=== PATIENT | male | born 1930 | race Hispanic/Latino ===

== ENCOUNTER 2018-04-07 23:28 | Inpatient (IN) | payer MEDICAID, SELFPAY ==
--- NOTE | 2018-04-07 23:59 | RAD ---
SINGLE VIEW OF THE CHEST: Comparison: None. History: Weakness that began one week ago. Chest pain. FINDINGS: Single view of the chest shows a normal sized cardiomediastinal silhouette. There is no evidence of c onsolidation, mass, or pleural effusion. The bones are unremarkable. IMPRESSION: No evidence of acute cardiopulmonary disease. POS: [facility]
[2018-04-08 00:17] LABS: #Eosinphils 0.3 thou/uL (0.0-0.7); #Lymphocytes 1.3 thou/uL (1.20-3.40); #Monocytes 0.9 thou/uL (0.11-0.59); #Neutrophils 8.1 thou/uL (1.40-6.50); %Basophils 0.3 % (0.0-1.0); %Lymphocytes 11.8 % (21.0-51.0); %Monocytes 8.5 % (0.0-10.0); %Neutrophils 76.5 % (42.0-75.0); Hemoglobin 11.2 g/dL (14.0-18.0); Mean Corpuscular Hemoglobin 30.1 pg (27.0-31.0); Mean Corpuscular Volume 88.6 fL (78.0-98.0); Platelet Count 198 thou/uL (130-400); Red Blood Cell (RBC) Count 3.72 mill/uL (4.70-6.10); White Blood Cell (WBC) Count 10.6 thou/uL (4.8-10.8)
[2018-04-08 00:33] LABS: Bilirubin Negative (Negative); Blood, Urine Large (Negative); Clarity TURBID (Clear); Glucose, Urine (Dipstick) Negative (Negative); Leukocyte Large (Negative); Nitrite Negative (Negative); Protein, Urine (Dipstick) 300 mg/dL (Neg-Trace); Specific Gravity, Urine 1.013 (1.002-1.036); pH, Urine 5.5 (5.0-9.0)
[2018-04-08 00:35] LABS: Bacteria/HPF None Seen HPF (None Seen); Squamous Epithelial 21-50 HPF (0-3)
[2018-04-08 00:38] LABS: ALT (SGPT) 7 U/L (8-55); AST (SGOT) 20 U/L (5-34); Albumin 3.3 g/dL (3.4-4.8); Alkaline Phosphatase 126 U/L (40-150); Anion Gap 15 mmol/L (10-20); BUN (Urea Nitrogen) 46 mg/dL (8.4-25.7); Bilirubin, Total 0.4 mg/dL (0.2-1.2); Calc. Creatinine Clearance 0 mL/min (70-130); Calcium 7.5 mg/dL (7.8-10.44); Carbon Dioxide 20 mmol/L (23-31); Chloride 103 mmol/L (98-107); Estimated GFR-MDRD 20; Globulin 2.9 g/dL (2.4-3.5); Glucose 299 mg/dL (83-110); Potassium 4.6 mmol/L (3.5-5.1); Protein, Total 6.2 g/dL (5.8-8.1); Sodium 133 mmol/L (136-145)
[2018-04-08 00:50] LABS: Pathc Cast-AUWi Flag 574.36 (0-2.49); Yeast-AUWi Flag 783.6 (0-25.0)
[2018-04-08 00:54] LABS: Hyaline Casts/LPF NONE SEEN LPF (0-3 Hyaline)
[2018-04-08 00:55] LABS: Yeast-All Forms 2+ HPF (None Seen)
[2018-04-08 00:56] LABS: Other Casts/LPF None Seen LPF (0-3 Hyaline); Renal Epithelial None Seen HPF (0-3)
[2018-04-08] MEDS ORDERED: cefTRIAXone\\ROCEPHIN 2 GM VIAL ONE (01:02)
[2018-04-08] MEDS ORDERED: Piperacillin/Tazobactam 4.5 GM VIAL ONE (01:52)
[2018-04-08] MEDS ORDERED: Senokot S 8.6-50 MG TAB PO PRN (02:38)
[2018-04-08] MEDS ORDERED: Dextrose 5% in Water 1,000 ML IV PRN (02:41)
[2018-04-08] MEDS ORDERED: Dextrose 50% Abboject 50 ML SYRINGE SLOW IVP PRN (02:41)
[2018-04-08 03:05] LABS: Creatinine, Urine 152.31 mg/dL (63-166)
[2018-04-08] MEDS ORDERED: Ondansetron PF 4 MG/2 ML Vial IVP PRN (03:53)
[2018-04-08] MEDS ORDERED: Ondansetron ODT 4 MG TAB SL PRN (03:53)
[2018-04-08 04:03] VITALS: BMI 26.7
--- NOTE | 2018-04-08 04:21 | HP ---
CHIEF COMPLAINT: Generalized weakness. HISTORY OF PRESENT ILLNESS: Patient is an 87-year-old male with a past medical history of diabetes and hypertension, who is a [place] resident who is visiting his family who comes in with complaints of generalized weakness. Patient's daughter who is at the bedside stated that about a week ago, patient was complaining of his right leg pain, so he went to a primary care doctor here, who prescribed some muscle relaxant and also told him that he had a urinary tract infection. At that time, patient was treated with ciprofloxacin for about 10 days. Patient also was given some ibuprofen p.r.n. as needed for the pain medications, which the family has religiously been giving him. Patient stated that they followed up with the primary care doctor back on Saturday since he was having some nausea, vomiting, and also the leg pain. At this time, they were asked to stop the ibuprofen and patient was started on gabapentin for the leg pain. According to patient's family, he has not been eating or drinking very well for the past few days. No fevers, however, had some shakes today. Also, today when he woke up this morning, he had some generalized weakness. Normally, he is able to walk around, but just felt very weak overall. Patient also has had redness around both of his eyes and was about a week ago, was prescribed some eye antibiotics for possible conjunctivitis. PAST MEDICAL HISTORY: 1. Diabetes. 2. Hypertension. 3. He has some prostate problems. SURGICAL HISTORY: Surgery, he had a TURP. No other surgeries. SOCIAL HISTORY: He is a former smoker. Occasional alcohol use. No drug use. He is a full code. Lives with the family. REVIEW OF SYSTEMS: All negative, except for the ones mentioned above in HPI. ALLERGIES: NO KNOWN ALLERGIES. MEDICATIONS: He takes: 1. Metformin, unknown dose. 2. He takes enalapril. 3. He takes insulin. 4. He has been taking gabapentin. 5. He has been taking ibuprofen. 6. He has been taking ciprofloxacin. FAMILY HISTORY: No history of heart disease, but does have history of diabetes. PHYSICAL EXAMINATION: VITAL SIGNS: His vital signs are as of the following; temperature of 97.8, 107/59, 22, 93% on room air, and 83. GENERAL: He is awake, alert, and oriented x3. Does not appear in any distress. CV: S1, S2 present. No murmurs, rubs, or gallops. LUNGS: Clear to auscultation. No rhonchi or wheezes noted. HEENT: Both of his conjunctiva appear to be injected. He does have some purulent drainage from his right conjunctiva. ABDOMEN: Soft, nontender. Bowel sounds are present x2. EXTREMITIES: No edema. Pedal pulses are present x2. He is able to move both his lower extremities. NEUROLOGIC: No focal deficits. He is able to move all 4 extremities and sensation is present bilateral upper and bilateral lower extremity. SKIN: No cuts, lesions, or bruises noted. LABORATORY RESULTS: As of the following; WBCs of 10.6, hemoglobin of 11.2, hematocrit of 32.9, and his platelets of 198. Sodium of 133, potassium of 4.6, anion gap is 15, bicarb is 20, BUN of 46, and creatinine of 3.01. His lactic acid is 1.8, calcium 7.5. LFTs are normal. Troponin x1 is negative. He also had a chest x-ray and a CT brain. CT brain did not show any acute abnormalities. Chest x-ray was okay. ASSESSMENT AND PLAN: Patient is a very pleasant 87-year-old male who presents to the hospital with complaints of generalized weakness. 1. Sepsis. I know patient does not have an elevated white count, however, patient clinically appears to be in sepsis, most likely from the urinary tract infection. We will start the patient on some ceftriaxone for now. Urine culture has been sent. His urine does also appear pretty cloudy and he has large leukocyte esterase and does have some large wbc's also. Patient currently has a low mean arterial pressure that is less than 65. He has not been resuscitated as of yet. He is currently being resuscitated in the ER. I would like his mean arterial pressure to be 65 or above. If not, he will need some Levophed drip. 2. Bilateral conjunctivitis, most likely appears to be bacterial. We will start him on some ciprofloxacin eyedrops and see if that helps the patient. 3. Acute kidney injury. Unknown patient's creatinine baseline since he has never really been here. However, family states that he has no kidney issues. Patient has been taking ibuprofen and has been taking his NAOMY and has been taking his metformin. I will hold all of that for right now. Start him on some gentle hydration. We will also get a Delgado catheter to make sure he is getting adequate urine output. We will do a renal ultrasound if his creatinine does not improve later on in the day today. We will get Nephrology to come see this patient. 4. Deep venous thrombosis prophylaxis. We will put the patient on some subcu heparin. Job ID: [id number]
[2018-04-08 05:19] LABS: #Eosinphils 0.2 thou/uL (0.0-0.7); #Monocytes 0.6 thou/uL (0.11-0.59); #Neutrophils 5.6 thou/uL (1.40-6.50); %Basophils 0.4 % (0.0-1.0); %Eosinophils 3.2 % (0.0-10.0); %Lymphocytes 12.9 % (21.0-51.0); %Monocytes 8.3 % (0.0-10.0); %Neutrophils 75.2 % (42.0-75.0); Hemoglobin 10.9 g/dL (14.0-18.0); Mean Corpuscular HGB CONC 34.4 g/dL (32.0-36.0); Mean Corpuscular Hemoglobin 30.9 pg (27.0-31.0); Mean Corpuscular Volume 89.8 fL (78.0-98.0); Mean Platelet Volume 8.2 fL (7.4-10.4); Platelet Count 160 thou/uL (130-400); Red Blood Cell (RBC) Count 3.54 mill/uL (4.70-6.10); White Blood Cell (WBC) Count 7.5 thou/uL (4.8-10.8)
[2018-04-08] MEDS ORDERED: Sodium Chloride 0.9% 1,000 ML IV SCH (05:30)
[2018-04-08 05:42] LABS: Anion Gap 14 mmol/L (10-20); BUN (Urea Nitrogen) 39 mg/dL (8.4-25.7); Calc. Creatinine Clearance 23 mL/min (70-130); Calcium 7.2 mg/dL (7.8-10.44); Carbon Dioxide 18 mmol/L (23-31); Chloride 107 mmol/L (98-107); Estimated GFR-MDRD 26; Glucose 230 mg/dL (83-110); Potassium 4.5 mmol/L (3.5-5.1); Sodium 134 mmol/L (136-145)
[2018-04-08] MEDS: Sodium Chloride 0.9% 1,000 ML IV SCH ×2 (06:06→20:59)
--- NOTE | 2018-04-08 08:32 | CT ---
PRELIMINARY REPORT/[facility]/EMERGENCY AFTER HOURS PROCEDURE: EXAM: CT Head Without Contrast EXAM DATE/TIME: 04/08/2018 12:36 AM CLINICAL HISTORY: 87 years old, male; Signs and symptoms; Altered mental status/memory loss; Patient HX: Ems reports lida aguilera began having weakness x1 week ago and was diagnosed with a uti and an eye infection. Family rep orts family keeps getting weaker. TECHNIQUE: Axial computed tomography images of the head/brain without contrast. COMPARISON: No relevant prior studies available. FINDINGS: Brain: No intracrainal hemorrhage. No midline shift. The brain parenchyma appears normal for age. Prominent extra-axial fluid collections Ventricles: No ventriculomegaly. Bones/joints: Normal. No acute fracture. Sinuses: Normal as visualized. No acute sinusitis. Mastoid air cells: Normal as visualized. No mastoid effusion. Soft tissues: Normal. IMPRESSION: No acute intracranial abnormality. Thank you for allowing us to participate in the care of your patient. Dictated and Authenticated by: Jude Laurent MD 04/08/2018 1:11 AM Central Time ([place] & [place]) FINAL REPORT CT BRAIN WITHOUT CONTRAST: Date: 04/08/18 FINDINGS/IMPRESSION: I agree with the preliminary report given by Yuly. POS: [facility]
--- NOTE | 2018-04-08 08:52 | ULT ---
BILATERAL RENAL ULTRASOUND: Date: 04/08/18 HISTORY: Renal insufficiency. FINDINGS: The right kidney measures 10.6 cm in length and the left kidney measures 10.7 cm in length. No focal mass or hydronephrosis is seen. There is a Delgado catheter in the urinary bladder. IMPRESSION: No evidence of high grade obstruction. POS: [facility]
[2018-04-08] MEDS ORDERED: Prevnar 13-Val Conj/PF 0.5 ML SYRINGE IM ONE (09:00)
[2018-04-08] MEDS: Ciprofloxacin 0.3 % Oint 3.5 GM TUBE EA EYE SCH ×2 (09:41→20:59)
[2018-04-08] MEDS: Heparin 5,000 UNITS/ML VIAL SC SCH ×3 (09:43→20:59)
--- NOTE | 2018-04-08 10:43 | PDOC.EVN ---
Event Note - Event Note Event Note: Patient afebrile, continue Rocephin and follow up on urine cx. Failed OP Cipro for UTI.
[2018-04-08] MEDS: Acetaminophen 325 MG TAB PO PRN (20:59)
[2018-04-09] MEDS: cefTRIAXone\\ROCEPHIN 1 GM in Sodium Chloride 0.9% 100 ML IVPB SCH (01:56)
[2018-04-09] MEDS: Heparin 5,000 UNITS/ML VIAL SC SCH ×3 (08:59→21:48)
[2018-04-09] MEDS: Ciprofloxacin 0.3 % Oint 3.5 GM TUBE EA EYE SCH ×2 (08:59→21:47)
--- NOTE | 2018-04-09 09:06 | PDOC.PN ---
- Subjective Encounter Start Date: 04/09/18 Encounter Start Time: 09:30 Subjective: Patient denies complaints. States leg pain mostly resolved. No more fever. -: No back or abdominal pain. Eager to go because has a flight to -: [place] on Apr 13 in [place]. - Objective Resuscitation Status - Order Detail: 04/08/18 02:38 Resuscitation Status Routine Resuscitation Status: FULL: Full Resuscitation Vital Signs & Weight: Vital Signs (12 hours) Temp Pulse Resp BP Pulse Ox 04/09/18 07:35 98.1 F 75 16 119/65 96 04/09/18 03:43 98.5 F 73 15 106/58 L 93 L 04/09/18 00:22 98.1 F Weight Weight 165 lb 11.2 oz I&O: 04/08/18 04/09/18 04/10/18 06:59 06:59 06:59 Intake Total 1000 Output Total 550 540 Balance -550 460 Result Diagrams: 04/08/18 04:52 04/08/18 04:52 Additional Labs: Accuchecks 04/09/18 04/08/18 04/08/18 05:42 20:47 17:17 POC Glucose 167 H 191 H 188 H 04/08/18 10:38 POC Glucose 202 H Phys Exam - Physical Examination Constitutional: NAD HEENT: moist MMs moderate conjuctival injection bilaterally Respiratory: no wheezing, no rales, no rhonchi Cardiovascular: RRR, no significant murmur Gastrointestinal: soft, non-tender, positive bowel sounds Musculoskeletal: no edema Neurological: non-focal, moves all 4 limbs Psychiatric: normal affect, A&O x 3 Dx/Plan (1) Urinary tract infection Status: Acute Qualifiers: Urinary tract infection type: acute pyelonephritis Qualified Code(s): N10 - Acute pyelonephritis (2) Sepsis Code(s): A41.9 - SEPSIS, UNSPECIFIED ORGANISM Status: Acute Comment: Fever and low BP on admission, improved, Lactic acid normal (3) ARF (acute renal failure) Status: Acute Qualifiers: Acute renal failure type: unspecified Qualified Code(s): N17.9 - Acute kidney failure, unspecified Comment: recheck, receiving fluids (4) Conjunctivitis Code(s): H10.9 - UNSPECIFIED CONJUNCTIVITIS Status: Acute Comment: Cipro optho drops (5) Diabetes mellitus type 2 in nonobese Code(s): E11.9 - TYPE 2 DIABETES MELLITUS WITHOUT COMPLICATIONS Status: Chronic Comment: on ISS, Lantus at home, holding metformin due to renal insufficiency (6) Hypertension Code(s): I10 - ESSENTIAL (PRIMARY) HYPERTENSION Status: Chronic Qualifiers: Hypertension type: essential hypertension Qualified Code(s): I10 - Essential (primary) hypertension Comment: Holding meds due to low BP - Plan cont current plan of care, continue antibiotics, DVT proph w/heparin Likely 1-2 more days of IV abx then once culture back can d/c on oral -: meds. * . - Discharge Day Encounter end time: 09:45
[2018-04-09] MEDS: Guaifenesin DM 100-10/5 ML UDCUP PO PRN (16:27)
[2018-04-09] MEDS ORDERED: Ondansetron ODT 4 MG TAB PO PRN (19:07)
[2018-04-09] MEDS ORDERED: Ondansetron PF 4 MG/2 ML Vial SLOW IVP PRN (19:07)
[2018-04-09] MEDS: Sodium Chloride 0.9% 1,000 ML IV SCH ×2 (21:49)
[2018-04-09] MEDS: HumaLOG 300 UNITS/3 ML VIAL SC PRN (22:43)
[2018-04-10] MEDS: Guaifenesin DM 100-10/5 ML UDCUP PO PRN ×2 (00:33→21:10)
[2018-04-10] MEDS: Acetaminophen 325 MG TAB PO PRN (00:33)
[2018-04-10] MEDS: cefTRIAXone\\ROCEPHIN 1 GM in Sodium Chloride 0.9% 100 ML IVPB SCH (00:34)
[2018-04-10 05:18] LABS: #Eosinphils 0.2 thou/uL (0.0-0.7); #Lymphocytes 0.9 thou/uL (1.20-3.40); #Monocytes 0.5 thou/uL (0.11-0.59); #Neutrophils 3.1 thou/uL (1.40-6.50); %Basophils 0.2 % (0.0-1.0); %Eosinophils 4.4 % (0.0-10.0); %Lymphocytes 19.1 % (21.0-51.0); %Neutrophils 65.3 % (42.0-75.0); Hemoglobin 10.4 g/dL (14.0-18.0); Mean Corpuscular HGB CONC 34.3 g/dL (32.0-36.0); Mean Corpuscular Hemoglobin 30.8 pg (27.0-31.0); Mean Corpuscular Volume 89.9 fL (78.0-98.0); Mean Platelet Volume 8.1 fL (7.4-10.4); Platelet Count 156 thou/uL (130-400); Red Blood Cell (RBC) Count 3.39 mill/uL (4.70-6.10); White Blood Cell (WBC) Count 4.8 thou/uL (4.8-10.8)
[2018-04-10 05:45] LABS: Anion Gap 10 mmol/L (10-20); BUN (Urea Nitrogen) 16 mg/dL (8.4-25.7); Calc. Creatinine Clearance 49 mL/min (70-130); Carbon Dioxide 22 mmol/L (23-31); Chloride 112 mmol/L (98-107); Estimated GFR-MDRD 63; Glucose 147 mg/dL (83-110); Sodium 140 mmol/L (136-145)
--- NOTE | 2018-04-10 07:38 | PDOC.PN ---
- Subjective Encounter Start Date: 04/10/18 Encounter Start Time: 14:00 Subjective: Patient denies pain. Some nausea earlier better with meds. Only low -: grade temp to 100.1 overnight. - Objective Resuscitation Status - Order Detail: 04/08/18 02:38 Resuscitation Status Routine Resuscitation Status: FULL: Full Resuscitation MAR Reviewed: Yes Vital Signs & Weight: Vital Signs (12 hours) Temp Pulse Resp BP Pulse Ox 04/10/18 04:00 97.8 F 74 20 124/68 94 L 04/10/18 00:00 100.1 F H 93 L 04/09/18 19:51 98.4 F 80 18 129/64 92 L Weight Admit Weight 165 lb 11.2 oz Weight 165 lb 1.6 oz I&O: 04/09/18 04/10/18 04/11/18 06:59 06:59 06:59 Intake Total 1000 911 Output Total 540 1025 Balance 460 -114 Result Diagrams: 04/10/18 04:42 04/10/18 04:42 Additional Labs: Accuchecks 04/10/18 04/09/18 04/09/18 05:50 20:22 16:50 POC Glucose 137 H 221 H 190 H 04/09/18 10:55 POC Glucose 229 H Phys Exam - Physical Examination Constitutional: NAD HEENT: moist MMs Respiratory: no wheezing, no rales, no rhonchi Cardiovascular: RRR, no significant murmur Gastrointestinal: soft, non-tender, positive bowel sounds Musculoskeletal: no edema Neurological: non-focal, moves all 4 limbs Psychiatric: normal affect, A&O x 3 Dx/Plan (1) Urinary tract infection Status: Acute Qualifiers: Urinary tract infection type: acute pyelonephritis Qualified Code(s): N10 - Acute pyelonephritis Comment: Decreasing fever curve. UCx only with yeast thus far. Will give a dose of Diflucan. (2) Sepsis Code(s): A41.9 - SEPSIS, UNSPECIFIED ORGANISM Status: Acute Comment: Fever and low BP on admission, improved, Lactic acid normal (3) ARF (acute renal failure) Status: Resolved Qualifiers: Acute renal failure type: unspecified Qualified Code(s): N17.9 - Acute kidney failure, unspecified Comment: resolved with fluids (4) Conjunctivitis Code(s): H10.9 - UNSPECIFIED CONJUNCTIVITIS Status: Acute Comment: Cipro optho drops (5) Diabetes mellitus type 2 in nonobese Code(s): E11.9 - TYPE 2 DIABETES MELLITUS WITHOUT COMPLICATIONS Status: Chronic Comment: on ISS, Lantus at home, holding metformin due to renal insufficiency (6) Hypertension Code(s): I10 - ESSENTIAL (PRIMARY) HYPERTENSION Status: Chronic Qualifiers: Hypertension type: essential hypertension Qualified Code(s): I10 - Essential (primary) hypertension Comment: Holding meds due to low BP - Plan cont current plan of care, continue antibiotics Possibly switch to oral antibiotics and home tomorrow if no more fever. * . - Discharge Day Encounter end time: 14:30
[2018-04-10] MEDS: Heparin 5,000 UNITS/ML VIAL SC SCH ×3 (09:02→21:12)
[2018-04-10] MEDS: Ciprofloxacin 0.3 % Oint 3.5 GM TUBE EA EYE SCH ×2 (09:02→21:16)
[2018-04-10] MEDS: Sodium Chloride 0.9% 1,000 ML IV SCH ×2 (09:03→21:10)
[2018-04-11] MEDS: Guaifenesin DM 100-10/5 ML UDCUP PO PRN ×2 (00:56→09:04)
[2018-04-11] MEDS: cefTRIAXone\\ROCEPHIN 1 GM in Sodium Chloride 0.9% 100 ML IVPB SCH (00:56)
--- NOTE | 2018-04-11 07:51 | PDOC.PN ---
- Subjective Encounter Start Date: 04/11/18 Encounter Start Time: 10:00 Subjective: Patient reports some congestion and cough overnight. -: No more fever. Eager to go home. - Objective Resuscitation Status - Order Detail: 04/08/18 02:38 Resuscitation Status Routine Resuscitation Status: FULL: Full Resuscitation MAR Reviewed: Yes Vital Signs & Weight: Vital Signs (12 hours) Temp Pulse Resp BP Pulse Ox 04/11/18 04:58 98.9 F 72 14 131/66 96 04/11/18 00:09 99.0 F 67 14 114/63 97 04/10/18 19:55 98.1 F 79 18 121/62 92 L Weight Admit Weight 165 lb 11.2 oz Weight 164 lb 11.2 oz I&O: 04/10/18 04/11/18 04/12/18 06:59 06:59 06:59 Intake Total 911 1071 Output Total 1025 1750 Balance -114 -862 Result Diagrams: 04/10/18 04:42 04/10/18 04:42 Additional Labs: Accuchecks 04/11/18 04/10/18 04/10/18 06:20 21:02 17:08 POC Glucose 154 H 194 H 194 H 04/10/18 10:54 POC Glucose 174 H Phys Exam - Physical Examination Constitutional: NAD HEENT: moist MMs decreased conjunctival inflammation Respiratory: no wheezing, no rales, no rhonchi Cardiovascular: RRR, no significant murmur Gastrointestinal: soft, non-tender, positive bowel sounds Neurological: non-focal, moves all 4 limbs Psychiatric: normal affect, A&O x 3 Dx/Plan (1) Urinary tract infection Status: Acute Qualifiers: Urinary tract infection type: acute pyelonephritis Qualified Code(s): N10 - Acute pyelonephritis Comment: Decreasing fever curve. UCx only with yeast thus far. Will give a dose of Diflucan. Switch to oral Omnicef. (2) Sepsis Code(s): A41.9 - SEPSIS, UNSPECIFIED ORGANISM Status: Resolved Comment: Fever and low BP on admission, improved, Lactic acid normal (3) ARF (acute renal failure) Status: Resolved Qualifiers: Acute renal failure type: unspecified Qualified Code(s): N17.9 - Acute kidney failure, unspecified Comment: resolved with fluids (4) Conjunctivitis Code(s): H10.9 - UNSPECIFIED CONJUNCTIVITIS Status: Acute Comment: Cipro optho drops (5) Diabetes mellitus type 2 in nonobese Code(s): E11.9 - TYPE 2 DIABETES MELLITUS WITHOUT COMPLICATIONS Status: Chronic Comment: on ISS, Lantus at home, holding metformin due to renal insufficiency (6) Hypertension Code(s): I10 - ESSENTIAL (PRIMARY) HYPERTENSION Status: Chronic Qualifiers: Hypertension type: essential hypertension Qualified Code(s): I10 - Essential (primary) hypertension Comment: Holding meds due to low BP - Plan cont current plan of care, continue antibiotics Switch to oral Omnicef and discharge home. * . - Discharge Day Encounter end time: 10:30
[2018-04-11 08:09] VITALS: BP 135/70; TEMP 98.1
[2018-04-11] MEDS ORDERED: Cefdinir 300 MG CAP PO SCH (09:00)
[2018-04-11] MEDS: Heparin 5,000 UNITS/ML VIAL SC SCH (09:04)
[2018-04-11] MEDS: Ciprofloxacin 0.3 % Oint 3.5 GM TUBE EA EYE SCH (09:04)
[2018-04-11] MEDS: HumaLOG 300 UNITS/3 ML VIAL SC PRN (13:03)
[2018-04-11] MEDS ORDERED: Fluconazole 100 MG TAB PO SCH (15:00)
--- NOTE | 2018-04-12 01:57 | DIS ---
DATE OF ADMISSION: 04/08/2018 DATE OF DISCHARGE: 04/11/2018 PRIMARY CARE PHYSICIAN: Out of town. REASON FOR ADMISSION: Sepsis and acute kidney injury. DIAGNOSES ON DISCHARGE: 1. Urinary tract infection. 2. Sepsis, resolved. 3. Acute renal failure, resolved. 4. Bacterial conjunctivitis. 5. Diabetes mellitus type 2. 6. Hypertension. PROCEDURES: Renal ultrasound showing no evidence of high grade obstruction, normal-appearing kidneys. CONSULTATIONS: None. SUMMARY OF HOSPITAL COURSE: This is an 87-year-old man who lives in [place] with history of insulin dependent diabetes and hypertension, he came here to visit his daughter, who has cancer. Before he came from [place], he had been treated for urinary tract infection by his primary care doctor, had been on ciprofloxacin for about 10 days. He started developing some right leg pain, did not improve with ibuprofen, so they put on gabapentin, he started to feel overall more weak. He also had about a week of conjunctivitis around his eyes. The patient was seen in the emergency room, noted to have a fever, normal white blood cell count. He had urinary tract infection. His blood pressure was low and his creatinine was jumped up to 3 with no history of renal disease. The patient was admitted for sepsis with acute renal failure. He was put on Rocephin. Urine culture was done, which only grew back yeast. During the hospitalization, he did spike a fever up to 101, this was then trended down and he has been afebrile for last 24 hours. His symptoms have improved. His renal failure resolved with IV fluids and his conjunctivitis improved remarkably as well. On day of discharge, the patient was having a little bit of drainage and cough treated with medications and inhaler, and he was ready to go home. DISCHARGE MANAGEMENT: Discharged to home. ACTIVITY: As tolerated. DIET: Diabetic diet. Instruction for inhaler given. DISCHARGE MEDICATIONS: Same as home blood pressure medicines and insulin plus new medications; 1. Albuterol 90 mcg inhaler 2 puffs every 4 hours as needed. 2. Cefdinir 300 mg twice a day for 7 days. 3. Ciprofloxacin ophthalmic ointment in each eye twice a day. 4. Fluconazole 100 mg daily for 3 more days. 5. Guaifenesin-DM 15 mL every 4 hours as needed for coughing and congestion. FOLLOWUP: He is to follow up with his primary care physician once he is back to [place] next week. Job ID: [id number]
--- NOTE | 2018-04-12 17:58 | EKG ---
Test Reason : Blood Pressure : / mmHG Vent. Rate : 085 BPM Atrial Rate : 085 BPM P-R Int : 134 ms QRS Dur : 078 ms QT Int : 346 ms P-R-T Axes : 012 034 041 degrees QTc Int : 411 ms Normal sinus rhythm Normal ECG Confirmed by ANDREW MARIE DO ([id number]), writer editor DIA FOX ([id number]) on 04/12/2018 5:57:56 PM Referred By: Confirmed By:ANDREW MARIE DO
== END 2018-04-11 14:05 | disposition home or self-care (01) | DRG 872 ==
LOC: ERS 23:28 → 2NO 04-08 02:16
PROVIDERS: ADMIT Internal Medicine; ATTEND Internal Medicine
DX: A41.9 Sepsis, unspecified organism (principal); N17.9 Acute kidney failure, unspecified; N10 Acute pyelonephritis; E11.9 Type 2 diabetes mellitus without complications; I10 Essential (primary) hypertension; H10.89 Other conjunctivitis
CPT/HCPCS: 36415; 36416; 51702; 70450; 71045; 76770; 80048; 80053; 81003; 81015; 82570; 83605; 83735; 84300; 84484; 85025; 87040; 87086; 93005; 94760; 96361; 96365; 96367; G8978-GP-CK; G8979-GP-CI; J0696; J1644; J2405; J2543; J7050